=== PATIENT | female | born 1995 | race Caucasian/White ===

== ENCOUNTER 2018-02-21 14:16 | Emergency (ER) | payer OTHER ==
[~2018-02-21] VITALS: Ht 160 cm; Wt 67.4 kg
[2018-02-21 15:37] VITALS: BP 120/68
== END 2018-02-21 15:39 | disposition home or self-care (01) ==
LOC: EME 14:16
DX: S60.221A Contusion of right hand, initial encounter (principal); W22.8XXA Striking against or struck by other objects, initial encounter
CPT/HCPCS: 73130; 99281; 99283